=== PATIENT | female | born 1950 | race Caucasian/White ===

== ENCOUNTER → 2016-07-08 | Outpatient (CLI) | payer MEDICARE, MEDICAID ==
[~2016-07-08] MED LIST: AMBIEN 5MG TAB5 MG PO; AMITRIPTYLINE25 MG PO; ASPIRIN EC325 M1 PO; CIPRO 500MG TA500 MG PO; DICLOFENAC SOD75 MG PO; DILTIAZEM120 MG PO; ESOMEPRAZOLE MA40 M1 PO; FAMOTIDINE20 MG PO; FISH OIL1000 MG PO; FLONASE 50 MCG16 GM; GABAPENTIN300 MG PO; HUMALOG MIX 75/10 ML SC; HYDROCODONE-APA1 TA1 PO; KLOR-CON M1010 MEQ PO; LANTUS INS100 UNITS/ SC; LASIX40 MG PO; LEVOTHYROXINE0.2 MG PO; LISINOPRIL 20MG20 MG PO; LORTAB 5/5001 TAB PO; LORTAB 500 MG-71 TAB PO; LOVENOX 4040 MG/0.1 IJ; MAG-OX 400MG T400 MG PO; MAXZIDE 37.5/21 EACH PO; MEDROL 4MG. DOSE4 MG PO; METFORMIN500 MG PO; MIRALAX17 GM/PACK PO; MULTI-DAY PLUS1 TA1 PO; MULTIVITAMIN1 SGL PO; Novolog100 U/ML SC; PRAVASTATIN 40M40 MG PO; REGLAN 10 MG TA10 MG PO; ROPINIROLE HYDRO1 MG PO; SUMATRIPTAN SUC25 MG PO; TEMAZEPAM30 M1 PO; TESSALON PERLE200 MG PO; TRICOR145 M1 PO; URSODIOL300 M1 PO
[2016-07-08 14:52] LABS: BUN 18 mg/dL (7-18)
[2016-07-08 14:53] LABS: GFR (ESTIMATED) 45 ML/MIN (59-)
[2016-07-08 17:12] LABS: HEMOGLOBIN 12.9 g/dL (12.2-16.2)
[2016-07-08 17:13] LABS: LYMPH # 1.4 K/mm3 (0.7-4.5); LYMPH % 26.5 % (10-50.0)
== END ==
LOC: LAB 13:59
PROVIDERS: Emergency Medicine
DX: E11.9 Type 2 diabetes mellitus without complications (principal); E78.5 Hyperlipidemia, unspecified; E05.90 Thyrotoxicosis, unspecified without thyrotoxic crisis or storm

== ENCOUNTER → 2016-10-02 | Outpatient (CLI) | payer MEDICARE, MEDICAID ==
[2016-10-02 17:03] LABS: BUN 19 mg/dL (7-18)
[2016-10-02 17:08] LABS: GFR (ESTIMATED) 63 ML/MIN (59-)
== END ==
LOC: LAB 13:45
PROVIDERS: Emergency Medicine
DX: E78.5 Hyperlipidemia, unspecified (principal)

== ENCOUNTER → 2016-10-05 | Outpatient (CLI) | payer MEDICARE, MEDICAID ==
--- NOTE | 2016-10-08 21:24 | RADIOLOGY REPORT PS360 ---
. DIG MAMM-SCREEN [facility] W/CAD CAD Screening ORDERING PHYSICIAN : Francois Friend MD PATIENT AGE: 66 years GENDER: Female COMPARISON: Previous mammograms: May 2015, 2013, September 2012. February 2011 INDICATION: Routine screening . Previous biopsy 2013 66-year-old. No hormones no new complaints previous stereotactic biopsy right breast TECHNIQUE: Standard CC and MLO images were obtained. R2 CAD reviewed. FINDINGS: Mild to moderate density breast bilaterally. No dominant mass. No significant suspicious calcifications. Scattered benign calcifications bilateral. RIGHT BREAST: The small grouping of calcifications at the superior left breast is not changed appreciably. Stable since at least. 2013. These can be followed.. Areas of mild asymmetry have remained stable as well. Many of the scattered calcifications at the lateral right breast no longer evident . 2 Metallic marker at the right breast from previous biopsy noted at the deep central, as well as medial/inferior central breast. LEFT BREAST: No significant change no new areas of concern follow-up in one year be adequate IMPRESSION: Stable bilateral mammogram with no new areas concern. BI-RADS CATEGORY: 2_Benign RECOMMENDED FOLLOWUP: 12M 12 MONTH FOLLOW-UP (A letter has been sent to the patient regarding results of the study.)
== END ==
LOC: RAD 07-21 08:30
DX: Z12.31 Encounter for screening mammogram for malignant neoplasm of breast (principal)
CPT/HCPCS: G0202

== ENCOUNTER → 2016-12-14 | Outpatient (CLI) | payer MEDICARE, MEDICAID ==
--- NOTE | 2016-12-14 13:58 | RADIOLOGY REPORT PS360 ---
EXAM: LUMBAR SPINE 5 VIEWS HISTORY: LOW BACK AND RT HIP PAIN ORDERING PHYSICIAN: Francois Friend MD PATIENT AGE: 66 years COMPARISON: None FINDINGS: There is lumbar spondylosis with mild multilevel degenerative disc disease and endplate osteophytes. There is 5 mm anterolisthesis of L4 on L5 and there are facet arthritic changes at L3, L4, L5, and S1. No fracture or dislocation. No lytic or blastic change. Prominent facet hypertrophic changes are present from L3 to S1. IMPRESSION: Lumbar spondylosis with degenerative disc disease along with severe facet arthritic changes from L3 to S1
--- NOTE | 2016-12-14 13:59 | RADIOLOGY REPORT PS360 ---
HIP RT 2-3V W/PELVIS IF PERFOR HISTORY: LOW BACK AND RT HIP PAIN ORDERING PHYSICIAN: Francois Friend MD PATIENT AGE: 66 years COMPARISON: None FINDINGS: There are mild osteoarthritic changes of both hips with decrease in the joint space superiorly and bony spurring. This is slightly greater on the right. No fracture or dislocation. No lytic or blastic change. IMPRESSION: Osteoarthritis of the hips
[2016-12-14 14:06] LABS: BUN 25 mg/dL (7-18); GFR (ESTIMATED) 63 ML/MIN (59-)
== END ==
LOC: LAB 11:45
PROVIDERS: Emergency Medicine
DX: M54.9 Dorsalgia, unspecified (principal); M25.551 Pain in right hip; E83.42 Hypomagnesemia; E66.3 Overweight; Z79.899 Other long term (current) drug therapy

== ENCOUNTER → 2017-03-17 | Outpatient (CLI) | payer MEDICARE ==
--- NOTE | 2017-03-17 14:29 | RADIOLOGY REPORT PS360 ---
HIP RT 2-3V W/PELVIS IF PERFOR HISTORY: RT HIP PAIN,RT KNEE PAIN ORDERING PHYSICIAN: Bao De Leon MD PATIENT AGE: 66 years COMPARISON: 12/14/2016 FINDINGS: There are mild osteoarthritic changes of the right hip. No fracture or dislocation. No lytic or blastic change. Degenerative disc disease and facet arthritic changes are present in the lower lumbar spine and there is also mild osteoarthritis of the left hip. IMPRESSION: 1. Mild osteoarthritis of the right hip. 2. Degenerative disc disease and facet arthritic changes are present in the lower lumbar spine and there is also mild osteoarthritis of the left hip
--- NOTE | 2017-03-17 14:32 | RADIOLOGY REPORT PS360 ---
KNEE-4 OR 5 VIEWS-RT HISTORY: Follow-up surgery, knee replacement RT HIP PAIN,RT KNEE PAIN ORDERING PHYSICIAN: Bao De Leon MD PATIENT AGE: 66 years COMPARISON: 12/06/2012 FINDINGS: AP, oblique, sunrise view, and lateral film show a total knee prosthesis in place. The femoral prosthesis is in good alignment and apposition to the tibial plateau prosthesis and there is an opaque plug in the undersurface of the patella. Skin clips have been removed.. IMPRESSION: Satisfactory post operative appearance of total knee prosthesis of the right knee
== END ==
LOC: RAD 13:31
DX: M25.551 Pain in right hip (principal); M25.561 Pain in right knee

== ENCOUNTER → 2017-04-05 | Outpatient (CLI) | payer MEDICARE ==
[2017-04-05 18:59] LABS: HEMOGLOBIN 13.7 g/dL (12.2-16.2); LYMPH # 1.3 K/mm3 (0.7-4.5); LYMPH % 22.3 % (10-50.0)
[2017-04-05 20:44] LABS: BUN 26 mg/dL (7-18); GFR (ESTIMATED) 56 ML/MIN (59-)
[2017-04-07 12:37] LABS: Creatinine, Urine 73.8 mg/dL (Not Estab.); Microalbumin, Urine <3.0 ug/mL (Not Estab.)
== END ==
LOC: LAB 18:29
PROVIDERS: Emergency Medicine
DX: E11.9 Type 2 diabetes mellitus without complications (principal); Z79.899 Other long term (current) drug therapy

== ENCOUNTER → 2017-06-04 | Outpatient (CLI) | payer MEDICARE ==
[2017-06-04 16:12] LABS: BUN 23 mg/dL (7-18)
[2017-06-04 19:11] LABS: GFR (ESTIMATED) 63 ML/MIN (59-)
[2017-06-07 16:36] LABS: Antinuclear Antibodies, IFA Positive (.)
== END ==
LOC: LAB 09:36
PROVIDERS: Nurse Practitioner Family
DX: L29.8 Other pruritus (principal); Z79.899 Other long term (current) drug therapy